=== PATIENT | male | born 1950 | race Hispanic/Latino ===

== ENCOUNTER 2022-04-06 10:23 | Day surgery (SDC) | payer MEDICARE ==
--- NOTE | 2022-03-31 13:08 | RAD REPORT ---
EXAM DESCRIPTION: RAD - Chest Pa And Lat (2 Views) - 03/31/2022 1:02 pm CLINICAL HISTORY: Pre op pending TURP COMPARISON: CHEST SINGLE VIEW dated 01/29/2010 FINDINGS: Lines: None. Lungs: No evidence of edema or pneumonia. Pleural: No significant pleural effusions or pneumothorax. Cardiac: The heart size is within normal limits. Mediastinum: Within normal limits. Bones: No acute fractures. Other: None IMPRESSION: No acute cardiopulmonary disease.
[2022-03-31 13:31] LABS: Absolute Lymphocytes (CBC) 2.8 K/uL (0.7-4.9); Hematocrit 43.9 % (39.6-49.0); Lymphocytes % 29.3 % (15.3-44.8); MCV 92.9 fL (80-100); MPV 7.6 fL (7.6-11.3); RBC Red Blood Cell Count 4.73 M/uL (4.33-5.43)
[2022-03-31 13:33] LABS: Protime INR 1.06
[2022-03-31 13:47] LABS: Potassium 4.1 mmol/L (3.5-5.1)
--- NOTE | 2022-04-05 13:00 | EKG ---
Test Date: 2022-03-31 Test Time: 12:48:18 Formal Service Waiter: GERMAN MEASUREMENT RESULTS: Intervals: Rate: 80 CT: 160 QRSD: 160 QT: 424 QTc: 489 Franklin: P: 18 CT: 160 QRS: -18 T: 115 INTERPRETIVE STATEMENTS: Normal sinus rhythm Left bundle branch block Abnormal ECG Compared to ECG 01/29/2010 09:49:25 Left bundle-branch block now present Electronically Signed On 04-05-22 12:54:15 BREED TO WEAN PRODUCTION TECHNICIAN by Kj Valdez
[~2022-04-06 10:23] MED LIST: Gentamicin Inj 240 MG in NA CHLORIDE 0.9% 100 ML IV SCH
[2022-04-06] MEDS ORDERED: NA CHLORIDE 0.9% 1,000 ML ONE ×2 (10:42→16:34)
[2022-04-06] MEDS ORDERED: AMPICILLIN SODIUM 2 GM/VIAL VIAL ONE (10:42)
[2022-04-06] MEDS ORDERED: FENTANYL CITR 100 MCG/2 ML ONE ×2 (14:00→15:21)
[2022-04-06] MEDS ORDERED: propofoL 200 MG/20 ML VIAL IV ONE (14:00)
[2022-04-06] MEDS ORDERED: MIDAZOLAM HCL 2 MG/2 ML INJ ONE (14:01)
[2022-04-06] MEDS ORDERED: LIDOCAINE 1% MPF 5 ML VIAL ONE (14:01)
[2022-04-06] MEDS ORDERED: ONDANSETRON 4 MG/2 ML VIAL ONE (14:01)
[2022-04-06] MEDS ORDERED: ROCURONIUM 50 MG/5 ML VIAL IV ONE (14:57)
[2022-04-06] MEDS ORDERED: OPIUM/BELLADONNA SUPPOS (30-16.2 MG) PR ONE (16:53)
[2022-04-06] MEDS ORDERED: CODEINE 30MG/APAP 300MG TAB PO PRN (16:59)
[2022-04-06] MEDS ORDERED: KETOROLAC 30 MG/ML INJ IV ONE (17:12)
[2022-04-06] MEDS ORDERED: KETOROLAC 30 MG/ML INJ ONE (17:12)
[2022-04-06] MEDS ORDERED: CODEINE 30MG/APAP 300MG TAB ONE (17:21)
[2022-04-06 17:33] VITALS: O2SAT 96
[2022-04-06 17:58] VITALS: BP 116/75; TEMP 97
--- NOTE | 2022-04-07 10:09 | OP ---
Surgeon: MICHAEL LOPEZ Preoperative Diagnoses: 1.Benign prostatic hypertrophy with lower urinary tract obstruction and symptoms. 2.Recurrent urinary tract infections. Postoperative Diagnoses: 1.Benign prostatic hypertrophy with lower urinary tract obstruction and symptoms. 2.Recurrent urinary tract infections. 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 Principal Procedure: Bipolar transurethral resection of the prostate with unroofing of multiple absc esses. Indication For Procedure: Mr. Hernández is a 71-year-old gentleman, who presented to the Urology Clinic with a history of a TURP over 7 or 8 years ago, who has had issues with recurrent urinary tract infec tions since that time. He underwent cystoscopic evaluation and upper tract imaging that was only rem arkable for significant prostatic urethral obstruction residual and was counseled on the potential be nefit to surgical management of that obstruction causing the recurrent infections. Procedure In Detail: The patient was consented in the preoperative holding area before being transfe rred to operative suite where general anesthesia was induced. He was given ampicillin 2 g and gentam icin 2-3 mg/kg IV antimicrobial prophylaxis and Pneumoboots were provided for DVT prophylaxis. He wa s placed in the lithotomy position, padded and secured to the table appropriately, and his genitalia were prepped with Hibiclens and draped in standard fashion. The case was begun using urethral sounds to dilate the meatus and fossa navicularis to 28-Georgian. Then using the 26-Georgian resectoscope and a visual machine operator hay stacker, I was able to navigate the resectoscope through the urethra and into his bladder w ith ease. The bladder was decompressed off fluid and urine and then refilled and surveyed. There wa s residual median lobar tissue that was abutting the trigone. However, a portion of the median lobar tissue was undermining the midportion of the trigone. As a result, I began by resecting the portion of the median lobe abutting the trigone down to the level of the bladder neck and leveling the porti on of the median lobe undermining the trigone down till it was even with the bladder neck. I then co ntinued resection of that elevated median bar down to the level of the verumontanum until a smooth tr ough had been created. Of note, in the process of resecting this tissue, I encountered large cavitar y spaces within the prostate posteriorly, as large as 1-2 cm in diameter. These cavitary areas were thus unroofed and made to be a smooth part of the trough and channel that was created. I then contin ued resection at the bladder neck region first of the left lateral lobe extending that to the anterio r zone of the prostate before resecting the remainder of the lateral lobar tissue in the mid zone of the prostate and the apex. Similar resection was performed on the right side. I then turned my atte ntion to the interdigitating and overlapping tissue at the apex of the prostate and resected any tiss ue that was overlapping until the tissue was no longer overlapping. I then continued the resection t o ensure a nice smooth trough had been created in all dimensions and was visible from the verumontanu m into the bladder. All prostate chips were Ellik evacuated on multiple occasions throughout the pro cess. Fulguration was performed on multiple occasions throughout the process; however, after a signi ficant degree of resection had been performed, I proceeded with an effort to fulgurate any and all bl eeders with his bladder decompressed. Additional prostatic tissue with the bladder decompressed did intrude into the lumen and thus also required resection in order to ensure completion of the channel desired. Again, with the bladder decompressed, I continued to fulgurate any and all bleeders until t he entirety of the area was hemostatic with the bladder nearly empty. No arterial bleeders were note d, and I ensured all prostate chips were removed from within his bladder. The ureteral orifices liz ined uninjured throughout the process, and thus I retrograde filled his bladder with saline before re moving the scope. I then placed a 24-Georgian 3-way Burton catheter via the urethra into his bladder wi th ease and I placed 40 cc of sterile water in the balloon. The catheter was then irrigated to ensur e absence of any debris or clot causing obstruction, and I placed the catheter to moderate traction a nd to slow drip CBI with the efflux completely clear. The patient was then taken out of the lithotom y position, awakened from general anesthesia, transferred to a stretcher, and then transferred to the recovery room in good condition. Complications: None. Discharge Disposition: He should follow up in the Urology Clinic on Tuesday for catheter removal and voiding trial. He will be discharged with an antimicrobial as well as a prescription for pain manage ment. WR/MODL Voice ID: [id number] Report ID: [id number]
== END 2022-04-06 18:51 | disposition home or self-care (01) ==
LOC: OR 10:23
PROVIDERS: ATTEND Urology
PROC: 0VT08ZZ Resection of Prostate, Via Natural or Artificial Opening Endoscopic (ICD-10-PCS; 2022-04-06)
PROC: 0VT08ZZ Resection of Prostate, Via Natural or Artificial Opening Endoscopic (ICD-10-PCS; principal; 2022-04-06 12:00)
DX: N40.1 Benign prostatic hyperplasia with lower urinary tract symptoms (principal); Z87.440 Personal history of urinary (tract) infections; N41.8 Other inflammatory diseases of prostate; N41.2 Abscess of prostate; I10 Essential (primary) hypertension; E11.9 Type 2 diabetes mellitus without complications
CPT/HCPCS: 52700; 52601; 93005; 87088; 85025; 87086; 80048; 36415; 85610; 82947 ×2; 88305; 71046; J2704; J2001; J1580; J2250; J3010 ×2; J7030 ×2; J2405; J0290

== ENCOUNTER 2023-06-08 13:31 | Observation (INO) | payer MEDICARE ==
--- NOTE | 2023-06-08 14:08 | RAD REPORT ---
EXAM DESCRIPTION: CT - Head Brain Wo Cont - 06/08/2023 2:00 pm CLINICAL HISTORY: Dizziness COMPARISON: None TECHNIQUE: Computed axial tomography of the head was obtained. IV contrast was not requested. All CT scans are performed using dose optimization technique as appropriate and may include automated exposure control or mA/KV adjustment according to patient size. FINDINGS: An intracranial bleed is not seen The ventricles are normal in caliber No extra-axial fluid collection is noted. Small low-density area left basal ganglia may represent an old lacunar infarction Mild low-density areas within periventricular, deep and subcortical white matter likely represent isc hemic changes secondary to small vessel disease. Fluid within the sinuses/ mastoids is not seen. IMPRESSION: No acute intracranial abnormality is seen If patient's symptoms persist MRI of the brain would be recommended
[2023-06-08 14:36] LABS: Absolute Lymphocytes (CBC) 2.6 K/uL (0.7-4.9); Hematocrit 43.6 % (39.6-49.0); Lymphocytes % 41.4 % (15.3-44.8); MCV 91.7 fL (80-100); MPV 7.4 fL (7.6-11.3); Platelets 216 thou/uL (152-406); RBC Red Blood Cell Count 4.75 M/uL (4.33-5.43)
[2023-06-08 14:41] LABS: Protime INR 1.1
[2023-06-08 15:01] LABS: Troponin High Sensitivity 3.8 pg/mL (<58.9)
--- NOTE | 2023-06-08 15:10 | EDPHYS ---
Physician Documentation [facility] Name: Erik Hernández Age: 73 yrs Sex: Male : 1950 Arrival Date: 06/08/2023 Time: 13:31 Bed 13 Private MD: Leighton Quintanilal T ED Physician Nima Munoz HPI: 06/08 13:51 This 73 yrs old Male presents to ER via Ambulatory with complaints of syncope, rn sob. 13:51 The patient presents to the emergency department with weakness of the entire body, rn generalized weakness. Onset: The symptoms/episode began/occurred 1 week(s) ago. Severity of symptoms: At their worst the symptoms were moderate in the emergency department the symptoms have improved. The patient has not experienced similar symptoms in the past. Patient reports syncopal episode 1 week ago. Has been having dyspnea on exertion for about a week. Associated with nausea and generalized malaise. Also has episodes of dizziness and blurred vision. Seen in [place] and told had "pre-heart attack", returned and daughter took him to [place] emergency room this weekend, admitted and discharged. Echo was not available and stress test was not performed. Patient reports still feels dizzy, weak, nausea and intermittent shortness of breath.. Historical: - Allergies: 13:40 No Known Allergies; bp - Home Meds: 13:40 lisinopril-hydrochlorothiazide 20-12.5 mg oral tablet [Active]; lovastatin 20 mg Oral bp tablet [Active]; levothyroxine 100 mcg capsule [Active]; metformin 500 mg Oral tablet 1 tab 2 times per day [Active]; - PMHx: 13:40 Diabetes mellitus; Hypertensive disorder; bp - Immunization history:: Adult Immunizations up to date. - Social history:: Smoking status: . - Family history:: not pertinent. - Hospitalizations: : Patient was recently seen at. ROS: 13:51 Constitutional: Negative for fever, chills, and weight loss, Cardiovascular: Negative rn for chest pain, palpitations, and edema, Respiratory: Positive for dyspnea on exertion Abdomen/GI: Positive for nausea MS/Extremity: Negative for injury and deformity, Skin: Negative for injury, rash, and discoloration, Neuro: Positive for generalized weakness Exam: 13:51 Constitutional: This is a well developed, well nourished patient who is awake, alert, rn and in no acute distress. Head/Face: Normocephalic, atraumatic. Eyes: Pupils equal round and reactive to light, extra-ocular motions intact. Cardiovascular: Regular rate and rhythm. No pulse deficits. Respiratory: No increased work of breathing, no retractions or nasal flaring. Abdomen/GI: Soft, nontender Skin: Warm, dry MS/ Extremity: Pulses equal, no cyanosis. Neuro: Awake and alert, GCS 15, oriented to person, place, time, and situation. Cranial nerves II-XII grossly intact. Motor strength 4/5 in all extremities. Sensory grossly intact. Cerebellar exam normal. Normal gait. 15:28 ECG was reviewed by the Attending Physician. rn Vital Signs: 13:39 BP 126 / 69; Pulse 85; Resp 16; Temp 97.6; Pulse Ox 100% ; bp 14:23 BP 104 / 63; Pulse 70; Resp 19; Pulse Ox 95% on R/A; me1 15:00 BP 112 / 70; Pulse 74; Resp 19; Pulse Ox 95% on R/A; me1 16:00 BP 109 / 63; Pulse 62; Resp 14; Pulse Ox 97% on R/A; me1 17:00 BP 94 / 61; Pulse 64; Resp 17; Pulse Ox 96% on R/A; me1 18:00 BP 97 / 64; Pulse 71; Resp 17; Pulse Ox 96% on R/A; me1 MDM: 13:36 Patient medically screened. rn 15:08 Data reviewed: vital signs, nurses notes, lab test result(s), EKG, radiologic studies, rn plain films, and as a result, I will admit patient. Consideration of Admission/Observation Patient was admitted/placed on observation. Escalation of care including admission/observation considered. Care significantly affected by the following chronic conditions: Diabetes, Hypertension. Counseling: I had a detailed discussion with the patient and/or guardian regarding the historical points, exam findings, and any diagnostic results supporting the discharge/admit diagnosis, lab results, radiology results, the need for further work-up and treatment in the hospital. 15:08 ED course: Patient with recent syncope, dyspnea on exertion. Admitted to outside hospital but workup incomplete. Patient presents here without resolution of symptoms. Will admit to hospitalist service for stress test and echo with cardiology consultation.. 06/08 13:50 Order name: Basic Metabolic Panel; Complete Time: 15:03 rn 06/08 13:50 Order name: CBC with Diff; Complete Time: 14:38 rn 06/08 13:50 Order name: NT PRO-BNP; Complete Time: 15:03 rn 06/08 13:50 Order name: PT-INR; Complete Time: 14:54 rn 06/08 13:50 Order name: Troponin HS; Complete Time: 15:03 rn 06/08 13:50 Order name: XRAY Chest (1 view) rn 06/08 13:50 Order name: CT Head Brain wo Cont; Complete Time: 14:38 rn 06/08 16:01 Order name: Brain Wo Cont EDMS 06/08 16:04 Order name: Carotid Artery Bilateral EDMS 06/08 16:04 Order name: Echo with Doppler EDMS 06/08 13:50 Order name: EKG; Complete Time: 13:51 rn 06/08 13:50 Order name: Cardiac monitoring; Complete Time: 15:05 rn 06/08 13:50 Order name: EKG - Nurse/Tech; Complete Time: 15:05 rn 06/08 13:50 Order name: IV Saline Lock; Complete Time: 14:31 rn 06/08 13:50 Order name: Labs collected and sent; Complete Time: 14:31 rn 06/08 13:50 Order name: O2 Per Protocol; Complete Time: 14:31 rn 06/08 13:50 Order name: O2 Sat Monitoring; Complete Time: 14:31 rn EC:28 Rate is 67 beats/min. Rhythm is regular. QRS [place] is Normal. [place] interval is normal. QRS rn interval is prolonged at 166 msec. QT interval is normal. No Q waves. T waves are Normal. No ST changes noted. Clinical impression: LBBB. Interpreted by me. Reviewed by me. Administered Medications: 15:30 Drug: Aspirin PO Chewable Tablet 324 mg PO once; 81 mg tablets x 4 Route: PO; me1 15:31 Follow up: Response: No adverse reaction me1 Disposition Summary: 06/08/23 15:10 Hospitalization Ordered Notes: Hospitalization Status: Observation rn Provider: Zach Moon rn Location: Telemetry/MedSurg (observation) rn Condition: Stable rn Problem: new rn Symptoms: are unchanged rn Bed/Room Type: Standard rn Room Assignment: 222(06/08/23 17:12) bd Diagnosis - Syncope rn - Dyspnea, unspecified rn Forms: - Medication Reconciliation Form rn - SBAR form rn - Leadership Thank You Letter rn Signatures: Dispatcher [employer] Ailyn Mcclelland Roman, MD MD rn Peltier, Brian, RN RN bp Kristy Byrd, RN RN me1 Corrections: (The following items were deleted from the chart) 17:12 15:10 rn hemant
--- NOTE | 2023-06-08 15:10 | ER ---
Nurse's Notes [facility] Name: Erki Hernández Age: 73 yrs Sex: Male : 1950 Arrival Date: 06/08/2023 Time: 13:31 Bed 13 Private MD: Leighton Quintanilla T Diagnosis: Syncope;Dyspnea, unspecified Presentation: 06/08 13:39 Chief complaint: Patient's son or daughter states: SYNCOPE 1 WK AGO, SEEN AT [facility] AND D/C HOME. STILL FEELS DIZZY AND NAUSEOUS. Coronavirus screen: At this time, the client does not indicate any symptoms associated with coronavirus-19. Ebola Screen: No symptoms or risks identified at this time. Initial Sepsis Screen: Does the patient meet any 2 criteria? No. Patient's initial sepsis screen is negative. Does the patient have a suspected source of infection? No. Patient's initial sepsis screen is negative. Risk Assessment: Do you want to hurt yourself or someone else? Patient reports no desire to harm self or others. Onset of symptoms is unknown. 13:39 Method Of Arrival: Ambulatory bp 13:39 Acuity: ORQUIDEA 3 bp Triage Assessment: 13:43 General: Appears in no apparent distress. Behavior is calm, cooperative, appropriate bp for age. Pain: Denies pain. Neuro: Reports dizziness, weakness GENERALIZED. Historical: - Allergies: 13:40 No Known Allergies; bp - Home Meds: 13:40 lisinopril-hydrochlorothiazide 20-12.5 mg oral tablet [Active]; lovastatin 20 mg Oral bp tablet [Active]; levothyroxine 100 mcg capsule [Active]; metformin 500 mg Oral tablet 1 tab 2 times per day [Active]; - PMHx: 13:40 Diabetes mellitus; Hypertensive disorder; bp - Immunization history:: Adult Immunizations up to date. - Social history:: Smoking status: . - Family history:: not pertinent. - Hospitalizations: : Patient was recently seen at. Screenin:25 [facility] ED Fall Risk Assessment (Adult) History of falling in the last 3 months, me1 including since admission No falls in past 3 months (0 pts) Confusion or Disorientation No (0 pts) Intoxicated or Sedated No (0 pts) Impaired Gait Yes (1 pt) Mobility Assist Device Used No (0 pt) Altered Elimination No (0 pt) Score/Fall Risk Level 0 - 2 = Low Risk Maintained a safe environment, Provided non-skid footwear, Hourly rounding (assess needs \\T\\ fall precautionary measures) done. Abuse screen: Denies threats or abuse. Nutritional screening: No deficits noted. Tuberculosis screening: No symptoms or risk factors identified. Assessment: 13:45 General: Appears comfortable, well groomed, well developed, well nourished, Behavior is me1 calm, cooperative, appropriate for age, Reports SYNCOPE 1 WK AGO, SEEN AT [facility] AND D/C HOME. STILL FEELS DIZZY AND NAUSEOUS. Pain: Denies pain. Neuro: Level of Consciousness is awake, alert, obeys commands, Oriented to person, place, time, situation, Appropriate for age Feller Machine Operator are equal bilaterally Moves all extremities. Full function Gait is steady, Speech is normal, Facial symmetry appears normal, Pupils are PERRLA, Intact Reports dizziness, intermittent "comes and goes". Cardiovascular: Capillary refill < 3 seconds Patient's skin is warm and dry. Respiratory: Airway is patent Trachea midline Respiratory effort is even, unlabored, Respiratory pattern is regular, symmetrical. 13:45 GI: Reports nausea, intermittent with dizziness. me1 Vital Signs: 13:39 BP 126 / 69; Pulse 85; Resp 16; Temp 97.6; Pulse Ox 100% ; bp 14:23 BP 104 / 63; Pulse 70; Resp 19; Pulse Ox 95% on R/A; me1 15:00 BP 112 / 70; Pulse 74; Resp 19; Pulse Ox 95% on R/A; me1 16:00 BP 109 / 63; Pulse 62; Resp 14; Pulse Ox 97% on R/A; me1 17:00 BP 94 / 61; Pulse 64; Resp 17; Pulse Ox 96% on R/A; me1 18:00 BP 97 / 64; Pulse 71; Resp 17; Pulse Ox 96% on R/A; me1 ED Course: 13:32 Patient arrived in ED. rg4 13:33 Leighton Quintanilla MD is Private Physician. rg4 13:36 Nima Munoz MD is Attending Physician. rn 13:40 Triage completed. bp 13:43 Arm band placed on. bp 14:02 CT Head Brain wo Cont In Process Unspecified. EDMS 14:03 Bed in low position. Call light in reach. bd 14:10 Kristy Byrd, RN is Primary Nurse. me1 14:30 Inserted saline lock: 22 gauge in left forearm, using aseptic technique. me1 14:31 Basic Metabolic Panel Sent. me1 14:31 CBC with Diff Sent. me1 14:31 NT PRO-BNP Sent. me1 14:31 PT-INR Sent. me1 14:31 Troponin HS Sent. me1 15:09 Zach Moon MD is Hospitalizing Provider. rn 15:29 XRAY Chest (1 view) In Process Unspecified. EDMS 18:25 Provided Education on: POC. Verbalized understanding. . me1 18:25 No provider procedures requiring assistance completed. me1 18:29 Patient admitted, IV remains in place. me1 Administered Medications: 15:30 Drug: Aspirin PO Chewable Tablet 324 mg PO once; 81 mg tablets x 4 Route: PO; me1 15:31 Follow up: Response: No adverse reaction me1 Medication: 18:29 VIS not applicable for this client. me1 Outcome: 15:10 Decision to Hospitalize by Provider. rn 18:28 Admitted to Med/surg accompanied by tech, via wheelchair, room 230, with chart, Report me1 called to MASOOD Sandoval 18:28 Condition: stable 18:28 Instructed on the need for admit, 18:32 Patient left the ED. me1 Signatures: Dispatcher [employer] EDAilyn Miller Nima Munoz MD MD rn Garcia, Rubi rg4 Vern Giordano RN RN Kristy Byrd, MASOOD RN me1 Corrections: (The following items were deleted from the chart) 18:26 13:39 Chief complaint: Patient's son or daughter states: SYNCOPE 1 WK AGO, SEEN AT [facility] [place] AND D/C HOME. STILL FEELS DIZZY AND NAUSEOUS bp
[2023-06-08] MEDS ORDERED: ASPIRIN 81 MG CHEWABLE TABLET ONE (15:28)
[2023-06-08] MEDS ORDERED: HYDROCODONE/APAP 5/325 MG TAB PO PRN (15:55)
[2023-06-08] MEDS ORDERED: ACETAMINOPHEN 325 MG TABLET PO PRN (15:55)
[2023-06-08] MEDS ORDERED: ONDANSETRON 4 MG/2 ML VIAL IV PRN (16:08)
--- NOTE | 2023-06-08 16:15 | P.HP ---
Certification for Inpatient Patient admitted to: Observation With expected LOS: <2 Midnights Patient will require the following post-hospital care: None Practitioner: I am a practitioner with admitting privileges, knowledge of patient current condition, hospital course, and medical plan of care. Services: Services provided to patient in accordance with Admission requirements found in Title 42 Section 412.3 of the Code of Federal Regulations <Kamilla Shah - Last Filed: 06/08/23 18:47> Patient History Date of Service: 06/08/23 Reason for admission: Dizziness\syncope History of Present Illness: Patient is a 73-year-old male with a past medical history significant for DM 2, hyperlipidemia, hypothyroidism who presents with complaint of syncope and dizziness. Patient is Kenyan-speaking. Patient is a poor historian and unable to provide accurate history. Family reported that patient has been experiencing dizziness and tinnitus for quite some time now. Family reported that patient had vertigo and a syncopal episode 9 days ago in [place]. Patient denies hitting his head but reported loss of consciousness. [place] continued having symptoms. Patient reported associated signs and symptoms blurred vision, tinnitus, shortness of breath with exertion, nausea and palpitations. Patient denies any other signs and symptoms. Symptoms are aggravated or relieved by nothing. Patient was seen at another facility recently but was discharged home without any workup. - Past Medical/Surgical History -: DM 2 -: HLD -: Hypothyroidism -: Prostrate surgery. - Social History Smoking Status: Never smoker Alcohol use: No CD- Drugs: No Caffeine use: No Place of Residence: Home <Kamilla Shah E - Last Filed: 06/08/23 18:47> Date of Service: 06/09/23 <Zach Moon - Last Filed: 06/09/23 07:40> Allergies No Known Allergies Allergy (Verified 06/08/23 20:13) Home Medications: Levothyroxine Sodium 100 mcg PO DAILY 03/31/22 Lisinopril/Hydrochlorothiazide [Lisinopril-Hctz 20-12.5 mg Tab] 1 each PO DAILY 03/31/22 Lovastatin 20 mg PO BEDTIME 03/31/22 Metformin HCl 500 mg PO BID 06/08/23 Review of Systems General: Unremarkable Eyes: Vision Change, Other (blurry vision) ENT: Unremarkable Respiratory: SOB with Excertion Cardiovascular: Palpitations Gastrointestinal: Nausea Genitourinary: Unremarkable Musculoskeletal: Unremarkable Integumentary: Unremarkable Neurological: Other (Dizziness, syncope, tinnitus, vertigo) Lymphatics: Unremarkable <AgusloydaKamilla cesar Landry - Last Filed: 06/08/23 18:47> Physical Examination - Physical Exam General: Alert, In no apparent distress, Oriented x3, Cooperative HEENT: Atraumatic, PERRLA, Mucous membr. moist/pink, EOMI, Sclerae nonicteric Neck: Supple, 2+ carotid pulse no bruit, No LAD, Without JVD or thyroid abnormality Respiratory: Clear to auscultation bilaterally, Normal air movement Cardiovascular: No edema, Regular rate/rhythm, Normal S1 S2 Capillary refill: <2 Seconds Gastrointestinal: Normal bowel sounds, Non-distended, No tenderness Musculoskeletal: No clubbing, No tenderness Integumentary: No rashes Neurological: Normal speech, Normal tone, Normal affect Lymphatics: No axilla or inguinal lymphadenopathy - Studies Laboratory Data (last 24 hrs) 06/08/23 06/08/23 06/08/23 14:28 14:28 14:28 WBC 6.20 Hgb 15.0 Hct 43.6 Plt Count 216 PT 12.1 INR 1.10 Sodium 136 Potassium 4.0 BUN 21 H Creatinine 1.12 Glucose 99 <Kamilla Shah E - Last Filed: 06/08/23 18:47> - Studies Laboratory Data (last 24 hrs) 06/08/23 06/08/23 06/08/23 14:28 14:28 14:28 WBC 6.20 Hgb 15.0 Hct 43.6 Plt Count 216 PT 12.1 INR 1.10 Sodium 136 Potassium 4.0 BUN 21 H Creatinine 1.12 Glucose 99 <Zach Moon - Last Filed: 06/09/23 07:40> Assessment and Plan - Plan --Syncope\dizziness. MRI brain unremarkable for any acute intracranial abnormality. Carotid Doppler pending to rule out any carotid artery stenosis. Echocardiogram pending to assess cardiac structures and functions. Telemetry to monitor for any significant arrhythmia. Gluer Machine Setup Operator and neurologist consulted. Will await further recommendations. --DM2. BS monitoring with sliding scale insulin. --Hyperlipidemia. Continue statin. --BPH. Continue Flomax. -- Hypothyroidism. Continue Synthroid. --Hypertension. Stable. Continue home medications. --CKD 2. Stable. We will continue to monitor renal functions. --DVT prophylaxis with Lovenox subQ Discharge Plan: Home Plan to discharge in: 48 Hours - Advance Directives Does patient have a Living Will: No Does patient have a Durable POA for Healthcare: No - Code Status/Comfort Care Code Status Assessed: Yes Physician Review: Patient Assessed, Agree with Above Assessment and Plan Critical Care: No <Kamilla Shah - Last Filed: 06/08/23 18:47> - Plan Pt seen and examined. I agree with the note by the RUG DYER. Pt is a 73 yo male with past medical history of DM II, and Htn who presents with syncope. Of note, pt started having SOB, nausea and generalized malaise about a week ago. Pt was seen at a hospital in [place] where he was told that he had heart attack. [place] and her daughter took him to the ER in [place]. Pt was not able to do Echo or stress test before he was discharged. Her daughter brought her to [facility] for evaluation. On admission, lab studies show WBC 6.2, Hgb 15, troponin 3.5, BNP 35, K 4, Cr 1.12. CT head is unremarkable. At bedside, pt is in NAD. A/P: Syncope: Will follow up orthostatic vital sign, Echo and carotid ultrasound. Troponin is 3.5, BMP is 35. DM II: Continue accuchek, SSI and ADA diet Htn: continue home med. Continue home med for other chronic medical problems. Code: full <Zach Moon - Last Filed: 06/09/23 07:40>
--- NOTE | 2023-06-08 16:29 | RAD REPORT ---
EXAM DESCRIPTION: Christina Single View06/08/2023 3:27 pm CLINICAL HISTORY: Shortness of breath COMPARISON: 2021 FINDINGS: The lungs appear clear of acute infiltrate. The heart is normal size IMPRESSION: No acute abnormalities displayed
--- NOTE | 2023-06-08 18:22 | RAD REPORT ---
EXAM DESCRIPTION: MRI - Brain Wo Cont - 06/08/2023 6:15 pm CLINICAL HISTORY: Dizziness COMPARISON: Head CT June 08, 2023 TECHNIQUE: Axial, sagittal, and coronal magnetic resonance images of the brain were obtained. FINDINGS: Mild signal within periventricular, deep and subcortical white matter probably ischemic c hanges secondary to small vessel disease Small old lacunar infarct left basal ganglia Diffusion-weighted/ADC mapping does not reveal evidence of acute infarction. The ventricles are normal caliber. An extra-axial fluid collection is not noted. Fluid within the sinuses/mastoids is not seen IMPRESSION: No acute intracranial abnormality noted
[2023-06-08 19:45] LABS: Magnesium 2.3 mg/dL (1.6-2.4); Phosphorus 2.9 mg/dL (2.5-4.9); Thyroid Stimulating Hormone 0.54 uIU/mL (0.358-3.740); Troponin High Sensitivity 3.9 pg/mL (<58.9)
[2023-06-08 21:20] VITALS: BMI 27.3
--- NOTE | 2023-06-08 22:08 | RAD REPORT ---
EXAM DESCRIPTION: USCarotid Artery Bilateral06/08/2023 9:56 pm CLINICAL HISTORY: syncope COMPARISON: None FINDINGS: The velocity of the right internal carotid artery equals 134 cm/sec. The right ICA/CCA rat io 2.2 The velocity of the left internal carotid artery equals 77 cm/sec. The left ICA/CCA ratio 1.2 Moderate plaque right carotid bulb/right internal carotid artery Mild plaque left carotid bulb/left internal carotid artery Mild plaque common carotid arteries The vertebral arteries demonstrate antegrade flow IMPRESSION: Moderate plaque right carotid bulb/left internal carotid artery resulting in an approxim ately 60% stenosis NASCET criteria used. Mild 0-49% stenosis Moderate 50-69% stenosis Severe 70-99% stenosis
[2023-06-09 03:12] LABS: Specific Gravity 1.018 (1.005-1.030); Urine Bilirubin NEGATIVE (Negative); Urine Blood Negative (Negative); Urine Clarity Clear (Clear); Urine Color Light-Yellow (Yellow); Urine Glucose NEGATIVE (Negative); Urine Protein NEGATIVE (Negative); Urine Urobilinogen Normal (Normal); Urine pH 5.5 (5.0-7.0)
[2023-06-09 06:06] LABS: Hematocrit 43.5 % (39.6-49.0); Lymphocytes % 39.8 % (15.3-44.8); MCV 91.1 fL (80-100); MPV 8.1 fL (7.6-11.3); Platelets 198 thou/uL (152-406); RBC Red Blood Cell Count 4.78 M/uL (4.33-5.43)
[2023-06-09 06:14] LABS: Potassium 4.2 mEq/L (3.5-5.1)
--- NOTE | 2023-06-09 10:42 | P.PN ---
Subjective Date of Service: 06/09/23 Chief Complaint: Dizziness\syncope Pt is resting comfortably in bed. He denies any chest pain or SOB. Waiting for Echo. carotid Ultrasound shows moderate plaque right carotid bulb/left internal carotid artery resulting in an approximately 60% stenosis. No other complaints Review of Systems Unremarkable General: Unremarkable Eyes: Unremarkable ENT: Unremarkable Respiratory: Unremarkable Cardiovascular: Unremarkable Gastrointestinal: Unremarkable Genitourinary: Unremarkable Musculoskeletal: Unremarkable Integumentary: Unremarkable Neurological: Unremarkable Lymphatics: Unremarkable Physical Examination - Vital Signs Temperature: 97.3 F Blood Pressure: 117/56 Pulse: 63 Respirations: 16 Pulse Ox (%): 96 - Physical Exam General: Alert, In no apparent distress, Oriented x3 HEENT: Atraumatic, Normocephalic, PERRLA Neck: Supple, 2+ carotid pulse no bruit Respiratory: Clear to auscultation bilaterally, Normal air movement Cardiovascular: No edema, Normal pulses, Regular rate/rhythm, Normal S1 S2 Capillary refill: <2 Seconds Gastrointestinal: Normal bowel sounds, Soft and benign, Non-distended Musculoskeletal: No clubbing, No swelling Integumentary: No rashes, No breakdown Neurological: Normal gait, Normal speech, Normal strength at 5/5 x4 extr, Normal tone, Sensation intact, Cranial nerves 3-12 intact Lymphatics: No axilla or inguinal lymphadenopathy - Studies Laboratory Data (last 24 hrs) 06/08/23 06/08/23 06/08/23 14:28 14:28 14:28 WBC 6.20 Hgb 15.0 Hct 43.6 Plt Count 216 PT 12.1 INR 1.10 Sodium 136 Potassium 4.0 BUN 21 H Creatinine 1.12 Glucose 99 Assessment And Plan - Plan Syncope: Will follow up orthostatic vital sign and Echo. Carotid ultrasound shows moderate plaque right carotid bulb/left internal carotid artery resulting in an approximately 60% stenosis. Pt will need to see a vascular surgeon. Troponin is 3.5, BMP is 35. Consulted cardiology DM II: Continue accuchek, SSI and ADA diet Htn: continue home med. Hyperlipidemia: Continue statin. BPH: Continue Flomax. Hypothyroidism: Continue Synthroid. Hypertension: Stable. Continue home medications. CKD 2: Stable. We will continue to monitor renal functions. DVT prophylaxis: Lovenox subQ Code: full Physician Review: Patient Assessed, Agree with Above Assessment and Plan
[2023-06-09] MEDS: ASPIRIN 81 MG CHEWABLE TABLET PO SCH (12:41)
[2023-06-09] MEDS: ENOXAPARIN 40 MG/0.4 ML SQ SCH (12:41)
--- NOTE | 2023-06-09 13:24 | EKG ---
Test Date: 2023-06-08 Test Time: 15:01:36 Cylinder Press Operator Helper: TRICE MEASUREMENT RESULTS: Intervals: Rate: 67 IL: 172 QRSD: 166 QT: 436 QTc: 460 [place]: P: 37 [place]: 172 QRS: 11 T: 103 INTERPRETIVE STATEMENTS: Normal sinus rhythm Left bundle branch block Abnormal ECG Compared to ECG 03/31/2022 12:48:18 No significant changes Electronically Signed On 06-09-23 13:22:06 EXPLOSIVES ENGINEER by Kj Valdez
--- NOTE | 2023-06-09 14:17 | ECHO ---
HEIGHT: 6 ft 0 in WEIGHT: 201 lb 11.2 oz DATE OF STUDY: 06/09/[address]: Kamilla Shah 2-DIMENSIONAL: YES M.MODE: YES DOPPLER: YES COLOR FLOW: YES TDS: YES PORTABLE: YES DEFINITY: BUBBLE STUDY: DIAGNOSIS: DIZZINESS, SYNCOPE CARDIAC HISTORY: CATHERIZATION: NO SURGERY: NO PROSTHETIC VALVE: NO PACEMAKER: NO MEASUREMENTS (cm) DIASTOLIC (NORMALS) SYSTOLIC (NORMALS) IVSd 1.2 (0.6-1.2) LA Diam 3.7 (1.9-4.0) LVEF 52% LVIDd 4.8 (3.5-5.7) LVIDs 3.5 (2.0-3.5) %FS 27% LVPWd 1.2 (0.6-1.2) Ao Diam 3.0 (2.0-3.7) 2 DIMENSIONAL ASSESSMENT: RIGHT ATRIUM: NORMAL LEFT ATRIUM: NORMAL RIGHT VENTRICLE: NORMAL LEFT VENTRICLE: NORMAL TRICUSPID VALVE: NORMAL MITRAL VALVE: MILD MITRAL REGURGITATION PULMONIC VALVE: MILD PULMONIC INSUFFICIENCY AORTIC VALVE: MILD AORTIC INSUFFICIENCY PERICARDIAL EFFUSION: NONE AORTIC ROOT: NORMAL LEFT VENTRICULAR WALL MOTION: NORMAL DOPPLER/COLOR FLOW: SEE BELOW COMMENTS: 1. NORMAL LEFT VENTRICULAR EJECTION FRACTION 50-55% 2. NORMAL WALL MOTION 3. GRADE I DIASTOLIC DYSFUNCTION 4. MILD TRICUSPID REGURGITATION, AORTIC INSUFFICIENCY, PULMONIC INSUFFICIENCY TECHNOLOGIST: MARCE HURD
[2023-06-09 23:17] VITALS: O2SAT 93
[2023-06-10 06:59] LABS: Absolute Lymphocytes (CBC) 2.7 K/uL (0.7-4.9); Hematocrit 44.2 % (39.6-49.0); Lymphocytes % 39.4 % (15.3-44.8); MCV 91.9 fL (80-100); MPV 7.9 fL (7.6-11.3); Platelets 204 thou/uL (152-406); RBC Red Blood Cell Count 4.81 M/uL (4.33-5.43)
[2023-06-10 07:03] LABS: Potassium 4.1 mEq/L (3.5-5.1)
[2023-06-10] MEDS: ASPIRIN 81 MG CHEWABLE TABLET PO SCH (08:34)
[2023-06-10] MEDS: ENOXAPARIN 40 MG/0.4 ML SQ SCH (08:34)
[2023-06-10 08:52] VITALS: BP 155/80; TEMP 96.8
--- NOTE | 2023-06-10 09:39 | P.DS ---
Admission Date: 06/08/23 Discharge Date: 06/10/23 Disposition: ROUTINE DISCHARGE Discharge Condition: GOOD Reason for Admission: Dizziness\syncope Brief History of Present Illness: Patient is a 73-year-old male with a past medical history significant for DM 2, hyperlipidemia, hypothyroidism who presents with complaint of syncope and dizziness. Patient is Georgian-speaking. Patient is a poor historian and unable to provide accurate history. Family reported that patient has been experiencing dizziness and tinnitus for quite some time now. Family reported that patient had vertigo and a syncopal episode 9 days ago in [place]. Patient denies hitting his head but reported loss of consciousness. [place]. Patient reported associated signs and symptoms blurred vision, tinnitus, shortness of breath with exertion, nausea and palpitations. Patient denies any other signs and symptoms. Symptoms are aggravated or relieved by nothing. Patient was seen at another facility recently but was discharged home without any workup. Hospital Course: Pt is a 73yo male with past medical history significant for DM 2, hyperlipidemia, and hypothyroidism who presented with complaint of syncope and dizziness. Patient is Georgian-speaking. Patient was a poor historian and unable to provide accurate history. Family reported that patient was expe riencing dizziness and tinnitus for quite some time now. Family reported that patient had vertigo and a syncopal episode 9 days ago in [place]. Patient denied hitting his head but reported loss of consciousness. [place]. Her daughter brought her to the Er for evaluation. We admitted pt for syncope. Orthostatic vital sign was unremarkable. Echo showed EF 55 - 60% withgrade 1 diastolic dysfunction. Carotid ultrasound showed moderate plaque in the right carotid bulb/left internal carotid artery resulting in an approximately 60% stenosis. Pt was advised to see a vascular surgeon. His daughter will take him to his PCP for referral to a vascular surgeon. We continued home med for other chronic medical problems and added aspirin. The symptoms resolved and pt requested to be discharged. Pt will also follow up with Cylinder Worker, Dr. Valdez in clinic for [place] stress test. His troponin was negative x 3. Pt was in NAD prior to discharge. Vital Signs/Physical Exam: Temp Pulse Resp BP Pulse Ox 96.8 F 63 18 155/80 H 100 06/10/23 08:00 06/10/23 08:00 06/10/23 08:00 06/10/23 08:00 06/10/23 08:00 Laboratory Data at Discharge: WBC 6.90 thou/uL (4.3-10.9) 06/10/23 06:22 Hgb 15.1 g/dL (13.6-17.9) 06/10/23 06:22 Hct 44.2 % (39.6-49.0) 06/10/23 06:22 Plt Count 204 thou/uL (152-406) 06/10/23 06:22 PT 12.1 SECONDS (9.5-12.5) 06/08/23 14:28 INR 1.10 06/08/23 14:28 Sodium 138 mEq/L (136-145) 06/10/23 06:22 Potassium 4.1 mEq/L (3.5-5.1) 06/10/23 06:22 BUN 15 mg/dL (7-18) 06/10/23 06:22 Creatinine 0.85 mg/dL (0.70-1.30) 06/10/23 06:22 Glucose 114 mg/dL (74-106) H 06/10/23 06:22 Phosphorus 2.9 mg/dL (2.5-4.9) 06/08/23 19:07 Magnesium 2.3 mg/dL (1.6-2.4) 06/08/23 19:07 Home Medications: Levothyroxine Sodium 100 mcg PO DAILY 03/31/22 Lisinopril/Hydrochlorothiazide [Lisinopril-Hctz 20-12.5 mg Tab] 1 each PO DAILY 03/31/22 Lovastatin 20 mg PO BEDTIME 03/31/22 Metformin HCl 500 mg PO BID 06/08/23 Aspirin Chewable [Aspirin Chewable*] 81 mg PO DAILY 90 Days #90 tab.chew 06/10/23 New Medications: Aspirin Chewable [Aspirin Chewable*] 81 mg PO DAILY 90 Days #90 tab.chew Physician Discharge Instructions: Continue ad jovi activity. Take home meds as prescribed. Follow up with PCP today for referral to a vascular surgeon. Pt has left internal carotid artery rebel nosis. Diet: AHA Activity: Ad jovi Followup: Leighton Quintanilla MD [Primary Care Provider] -
--- NOTE | 2023-06-10 15:53 | CON ---
Date of Consultation: 06/09/2023 Reason For Consultation: Dizziness. History Of Present Illness: This is a 73-year-old male, who presented for evaluation of dizziness an d he apparently had a syncopal episode at [place] and not clear the occasion. He was seen by a doctor there and was told it might be his heart. He comes in here. Denies having any chest pain. Just fe eling generalized weakness and mild dizziness every now and then, but there is no palpitations, chest pain, or any other symptoms, and no further syncopal episodes. Past Medical History: Hypertension, diabetes, and hypothyroidism. Medications: Refer to reconciliation sheet for detailed list. Allergies: NO KNOWN DRUG ALLERGIES. Family History: No premature coronary artery disease or cancer. Social History: Does not smoke or drink. Does not use any drugs. Review of Systems: All systems reviewed and they were negative except what mentioned in HPI. Physical Examination: Vital Signs: Reviewed. Head and Neck: Pupils are equal, reactive to light. Intact eye movements. No JVD. No cervical lym phadenopathy. Neck is supple. Thyroid is not enlarged. Lungs: Clear to auscultation bilaterally. No rhonchi, wheezing, or crackles. No accessory muscle u se. Heart: Regular rate and rhythm. No extra sounds. Abdomen: Soft, nontender. Bowel sounds positive. No organomegaly. No masses or hernia. No rigidi ty or rebound. Extremities: No edema, clubbing, or cyanosis. Intact pulses. Skin: No rash or nodule. Neurologic: Alert, awake, oriented x3. No acute focal deficits appreciated. Lymph Nodes: No cervical or axillary lymphadenopathy. Investigations: Cardiac enzymes are negative. BUN is 18, creatinine 0.83, hemoglobin 15.1. Assessment And Recommendations: 1.Dizziness with syncopal episode at [place]. These circumstances are not very clear. Recommend mon itoring on telemetry. Carotid Doppler showed a close 60% stenosis. Recommend an angiogram, which ca n be done as an outpatient. Monitor on telemetry. Trend cardiac enzymes and obtain an echo. Furthe r recommendations to follow. 2.Carotid stenosis, moderate apparently by Doppler. Instructed the patient to follow up as an outpa tient once discharged and plan for outpatient carotid angiogram. 3.Hypertension. Blood pressure is controlled. SR/MODL Voice ID: [id number] Report ID: [id number]
== END 2023-06-10 10:31 | disposition home or self-care (01) ==
LOC: ER 13:31 → ERHOLD 15:57 → 2ND 18:26
PROVIDERS: ADMIT Hospitalist; ATTEND Hospitalist
DX: R55 Syncope and collapse (principal); E11.22 Type 2 diabetes mellitus with diabetic chronic kidney disease; I12.9 Hypertensive chronic kidney disease with stage 1 through stage 4 chronic kidney disease, or unspecified chronic kidney disease; N18.2 Chronic kidney disease, stage 2 (mild); N40.0 Benign prostatic hyperplasia without lower urinary tract symptoms
CPT/HCPCS: 93005; 93306; 85025 ×3; 80048 ×3; 36415 ×2; 83735; 84100; 85610; 80061; 82947 ×3; 84443; 81003; 84484 ×4; 84439; 83880; 70450; 71045; 93880; 70551; J1650 ×2; G0378 ×5